=== PATIENT | female | born 1995 | race Caucasian/White ===

== ENCOUNTER 2018-09-05 16:26 | Emergency (ER) | payer OTHER ==
[~2018-09-05] VITALS: Ht 154.9 cm; Wt 72.8 kg
[~2018-09-05 16:26] MED LIST: IBUP800T48 PO
[2018-09-05 16:30] VITALS: BP 135/63; PULSE 95; RESP 16; Ht 154.9 cm; Wt 72.8 kg
--- NOTE | 2018-09-05 17:50 | ERD ---
ER Documentation Chief Complaint Chief Complaint R leg w reddened patches; itchy+ swollen worsening since 09/04. HPI Is a 23-year-old female presents to the emergency room with a rash to the bilateral lower extremities and upper back. Patient states that on 03 September she was outside she does not recall being bit by an insect but over the last several days she has developed a raised red rash to several areas of lower extremity worst of which is just superior to the popliteal fossa on the right lower extremity. The patient notes 2 similar lesions on her lower back. The patient is describing some itchiness and mild throbbing pain to these areas. She denies any fevers or chills. She is reporting some mild shortness of breath but is also feeling somewhat anxious. She denies any pleuritic pain, no fevers or chills. Patient denies any foot pain or abdominal pain. ROS All systems reviewed and are negative except as per history of present illness. Medications Home Meds Active Scripts Hydroxyzine Hcl* (Atarax*) 25 Mg Tab, 25 MG PO Q6H PRN for ITCHING, #20 TAB Prov:JM PERDOMO MD 09/05/18 Ibuprofen* (Motrin*) 600 Mg Tab, 600 MG PO Q6H PRN for PAIN AND OR ELEVATED TEMP, #30 TAB Prov:JM PERDOMO MD 09/05/18 Ibuprofen* (Motrin*) 800 Mg Tab, 800 MG PO Q6, #30 TAB Prov:EUGENE JORGE PA-C 11/16/14 Reported Medications [None] No Conflict Check 03/30/10 Allergies Allergies: Coded Allergies: No Known Allergies (Verified Allergy, Mild, 10/28/13) PMhx/Soc History of Surgery: No Anesthesia Reaction: No Hx Neurological Disorder: No Hx Respiratory Disorders: No Hx Cardiac Disorders: No Hx Psychiatric Problems: No Hx Miscellaneous Medical Probl: No Hx Alcohol Use: No Hx Substance Use: No Hx Tobacco Use: No Smoking Status: Never smoker FmHx Family History: No diabetes Physical Exam Vitals Vital Signs Date Temp Pulse Resp B/P (MAP) Pulse Ox O2 O2 Flow FiO2 Time Delivery Rate 09/05/18 99.2 95 16 135/63 95 16:30 (87) Physical Exam General: Well developed, well nourished, no acute distress Head: Normocephalic, atraumatic. Eyes: Pupils equally reactive, EOM intact ENT: Moist mucous membranes Neck: Supple, no lymphadenopathy Respiratory: Lungs clear bilaterally, no distress Cardiovascular: RRR, no murmurs, rubs, or gallops Abdominal: Soft, non-tender, non-distended, no peritoneal signs : Deferred MSK: No edema, no unilateral swelling, 5/5 strength, Negative Homans sign Neurologic: Alert and oriented, moving all extremities, normal speech, no focal weakness, no cerebellar signs Skin: The patient has several areas of the right lower extremity that are consistent with a raised area of erythema with slight blanching, slightly tender. The patient also has 2 similar lesions on the lumbar back. Psych: Normal mood Result Diagram: 09/05/18 1712 09/05/18 171 Results 24 hrs Laboratory Tests Test 09/05/18 17:00 09/05/18 17:11 09/05/18 17:12 09/05/18 17:13 Urine Color LILI Urine Clarity TURBID Urine pH 8.0 Urine Specific 1.021 Parker Urine Ketones NEGATIVE mg/dL Urine Nitrite NEGATIVE mg/dL Urine Bilirubin NEGATIVE mg/dL Urine Urobilinogen NEGATIVE mg/dL Urine Leukocyte TRACE Gena/ul Esterase Urine Microscopic 5 /HPF RBC Urine Microscopic 2 /HPF WBC Urine Squamous FEW /HPF Epithelial Cells Urine Amorphous MODERATE /HPF Crystals Urine Mucus FEW /HPF Urine Hemoglobin NEGATIVE mg/dL Urine Glucose NEGATIVE mg/dL Urine Total NEGATIVE mg/dl Protein Sodium Level 140 mmol/L Potassium Level 3.8 mmol/L Chloride Level 106 mmol/L Carbon Dioxide 27 mmol/L Level Anion Gap 7 Blood Urea 7 mg/dl Nitrogen Creatinine 0.55 mg/dl Est Glomerular > 60 mL/min Filtrat Rate mL/min Glucose Level 114 mg/dl Calcium Level 9.3 mg/dl C-Reactive Protein 1.5 mg/dl White Blood Count 8.4 10^3/ul Red Blood Count 5.19 10^6/ul Hemoglobin 13.5 g/dl Hematocrit 40.5 % Mean Corpuscular 78.0 fl Volume Mean Corpuscular 26.0 pg Hemoglobin Mean Corpuscular 33.3 g/dl Hemoglobin Concent Red Cell 13.1 % Distribution Width Platelet Count 333 10^3/UL Mean Platelet 10.3 fl Volume Immature 0.100 % Granulocytes % Neutrophils % 66.2 % Lymphocytes % 22.0 % Monocytes % 6.6 % Eosinophils % 4.9 % Basophils % 0.2 % Nucleated Red 0.0 /100WBC Blood Cells % Immature 0.010 10^3/ul Granulocytes # Neutrophils # 5.6 10^3/ul Lymphocytes # 1.9 10^3/ul Monocytes # 0.6 10^3/ul Eosinophils # 0.4 10^3/ul Basophils # 0.0 10^3/ul Nucleated Red 0.0 10^3/ul Blood Cells # Erythrocyte 14 mm/Hr Sedimentation Rate POC Beta HCG, NEGATIVE Qualitative Procedures/MDM LAB INTERPRETATION: I reviewed the laboratory testing and it shows mild CRP elevation but normal ESR MEDICAL DECISION MAKING: The patient's presentation is likely consistent with localized inflammatory reaction secondary to insect bite. However the patient does have a subtle nonblanching component. This could be medicare sales representative of palpable purpura though HSP would be extremely unlikely in this 23-year-old female. I do believe however that a CBC ESR and CRP would be reasonable to screen for this process. No signs or symptoms concerning for systemic illness, this is not consistent with meningitic rash. ER COURSE: * The patient has a normal white count, normal platelets, normal ESR. CRP is slightly elevated but likely secondary inflammatory response. These laboratory tests do not suggest vasculitis. The patient be safely discharged home with cool compresses, NSAIDs and antihistamines. CONSULTATION: None DISPOSITION PLAN: The patient does not have an identifiable emergent medical condition that warrants inpatient hospitalization at this time. The patient is deemed safe for discharge with outpatient follow-up. We discussed follow up with the patient's primary care doctor within 24 to 48 hours as needed. We also discussed return to the emergency room for worsening symptoms or worsening condition. Outpatient referral: None required Discharge Medications: Motrin, Atarax Departure Diagnosis: Primary Impression: Insect bite Encounter type: initial encounter Site of insect bite: lower leg Laterality: right Qualified Codes: S80.861A - Insect bite (nonvenomous), right lower leg, initial encounter; W57.XXXA - Bitten or stung by nonvenomous insect and other nonvenomous arthropods, initial encounter Additional Impression: Rash and other nonspecific skin eruption Condition: JM Hurtado MD Sep 05, 2018 17:50
[2018-09-05] MEDS ORDERED: IBUP-1542 PO (18:43)
[2018-09-05] MEDS ORDERED: HYDR-842 PO (18:43)
== END 2018-09-05 18:58 | disposition home or self-care (01) ==
LOC: E/R 16:26
DX: S80.861A Insect bite (nonvenomous), right lower leg, initial encounter (principal); W57.XXXA Bitten or stung by nonvenomous insect and other nonvenomous arthropods, initial encounter; Y92.9 Unspecified place or not applicable
CPT/HCPCS: 80048; 81001; 81025; 85025; 85651; 86140; Z7502; 99283